=== PATIENT | female | born 1990 | race Caucasian/White ===

== ENCOUNTER 2016-09-22 21:19 | Emergency (ER) | payer MEDICAID, OTHER ==
[~2016-09-22] VITALS: Ht 165.1 cm; Wt 66.5 kg
[2016-09-22 21:21] VITALS: Ht 165.1 cm; Wt 66.5 kg
--- NOTE | 2016-09-22 22:14 | ERD ---
ER Documentation Chief Complaint Date/Time DATE: 09/22/16 TIME: 22:09 Chief Complaint right foot pain x 1 week HPI This 25-year-old female presents to emergency department today with right foot pain. Patient reports pain is on the mid dorsal aspect of foot, reports she was walking last week felt a pop and had pain in the top of her foot ever since. 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 Denies any injury, did not drop anything on her foot. Patient reports pain is 9 /10 on pain scale is now difficult to fully weight-bear. Patient has not tried any [id number] pain medication, has not used rest, ice, or compression for treatment of foot pain. Patient denies any numbness or tingling to her toes. Denies bruising, or swelling of foot. ROS All systems reviewed and are negative except as per history of present illness. PMhx/Soc Medical and Surgical Hx: pt denies Medical Hx, pt denies Surgical Hx Hx Alcohol Use: No Hx Substance Use: No Hx Tobacco Use: No Smoking Status: Never smoker Physical Exam Vitals Vital Signs Date Time Temp Pulse Resp B/P Pulse Ox O2 Delivery O2 Flow Rate FiO2 09/22/16 21:21 98.1 87 20 116/68 99 Physical Exam Const: No acute distress, Head: Atraumatic Eyes: Normal Conjunctiva, PERRLA, EOMI ENT: Normal External Ears, Nose and Mouth. Mucous membranes moist Neck: Resp: Chest rises and falls symmetrically clear to auscultation bilaterally, no respiratory distress Cardio: Abd: Skin: Back: Ext: Lower Extremity -right foot: Skin: No laceration Compartments: [Soft] Motor: Full active range of motion hip/knee/ankle/foot, Perdue test negative Sensation: Intact to light touch anterior, lateral, inferior, posterior, surfaces. Bones: Nontender pelvis/knee/proximal tibia/ malleoli/foot Joints: No effusion or laxity Pulses/Perfusion: 2+ DP, Capillary refill < 2 seconds Neur: Awake and alert Psych: Normal Mood and Affect Results 24 hrs Laboratory Tests Test 09/22/16 23:16 Bedside Urine pH (LAB) 6.5 Bedside Urine Protein (LAB) Negative Bedside Urine Glucose (UA) Negative Bedside Urine Ketones (LAB) Negative Bedside Urine Blood Trace-intact Bedside Urine Nitrite (LAB) Negative Bedside Urine Leukocyte Esterase (L Negative Procedures/MDM PROCEDURE: X-ray right foot CLINICAL INDICATION: Right foot pain TECHNIQUE: 3 views right foot COMPARISON: None FINDINGS: Reference marker is directed towards the medial aspect of the right midfoot without evident underlying radiographic abnormality. No acute fracture or dislocation. Soft tissues unremarkable. IMPRESSION: No acute fracture. RPTAT: [facility] Physician Morgan Date Time Electronically viewed and signed by Physician Morgan on 09/22/2016 23:42 RS/ CC: LULI COPELAND This 25-year-old female presents to emergency department today for evaluation of right foot pain 1 week without injury. Fracture, dislocation, metatarsalgia , x-ray obtained with results as followed; Departure Diagnosis: Primary Impression: Foot pain Laterality: right Qualified Code: M79.671 - Right foot pain Condition: Good Patient Instructions: Contusion, Soft Tissue, Sprain Foot Additional Instructions: Thank you for for coming to [facility] for your care today. Please ask your nurse or provider if you have questions about your care today and do not leave until all your questions have been answered. Please use any medications given as directed and follow-up with your doctor (or the doctor you were referred to) in the next 2-3 days. If you do not have a primary care doctor you may follow up at the [facility] (listed below). You may also use motrin and tylenol as needed for fever and/or pain unless instructed otherwise by your provider or nurse. Indications for more urgent follow-up have been discussed, but you may return to the Emergency Department at ANY time for any worrisome or worsening symptoms. If you have abdominal pain, please know that no test or exam you received is perfect and you should follow up within 8 hours for continued pain. If you had any imaging studies today, such as an X-Ray or CT Scan, these studies will be reviewed later by a radiologist. You will be called if there are important findings that were not identified today, so make sure the contact information you provided at registration is correct. If you received any narcotic pain control medicine today, such as Vicodin, Morphine or Dilaudid, your coordination and judgment may be affected for a number of hours. Please do not drive or operate heavy machinery, and you may want someone to assist you at home. If you were given a prescription for narcotic medication, be aware that it is very addictive- use sparingly and only if necessary. LULI COPELAND September 22, 2016 22:14
[2016-09-22 23:13] LABS: URINE BLOOD (Dip) POC Trace-intact (NEGATIVE)
--- NOTE | 2016-09-22 23:43 | RADRPT ---
PROCEDURE: X-ray right foot CLINICAL INDICATION: Right foot pain TECHNIQUE: 3 views right foot COMPARISON: None FINDINGS: Reference marker is directed towards the medial aspect of the right midfoot without evident underlyi ng radiographic abnormality. No acute fracture or dislocation. Soft tissues unremarkable. IMPRESSION: No acute fracture. RPTAT: [facility] Physician Morgan Date Time Electronically viewed and signed by Cyndie Ferreira Physician on 09/22/2016 23:42 RS/
[2016-09-22] MEDS ORDERED: IBUP400T22 PO (23:51)
[2016-09-23 00:24] VITALS: BP 112/68; PULSE 72; RESP 20; TEMP 98.6
== END 2016-09-23 00:26 | disposition home or self-care (01) ==
LOC: FTE 21:19
DX: M79.671 Pain in right foot (principal)
CPT/HCPCS: 73630; 81003; Z7502